=== PATIENT | female | born 1990 | race Caucasian/White ===

== ENCOUNTER 2016-07-14 08:56 | Emergency (ER) | payer SELFPAY ==
[~2016-07-14] VITALS: Ht 167.6 cm; Wt 77.9 kg
[~2016-07-14 08:56] MED LIST: ANTI-DIARRHEA2 MG PO; BACTRIM,SEPT1 TABLET PO; BENTYL10 MG PO; CIPRO500 MG PO; CLONIDINE HCL0.1 MG PO; INDOCIN25 MG PO; KEFLEX500 MG PO; MOTRIN600 MG PO; NAPROSYN500 MG PO; NOHOMEMEDS; NORCO 5/3251 TABLET PO; NORCO 7.5/321 TABLET PO; OXYCODONE HCL30 MG PO; OXYCONTIN60 MG PO; PERCOCET 5/31 TABLET PO; PHENERGAN-CODE120 ML PO; PYRIDIUM100 MG PO; PYRIDIUM200 MG PO; TRAZODONE HCL50 MG PO; VIBRAMYCIN100 MG PO; VICODIN 5-3001 EACH PO
[2016-07-14 10:15] LABS: HEMATOCRIT 43.1 % (36.0-46.0); MCH 32.5 PG (29.0-34.0); MCHC 34.3 G/DL (30.0-36.0); MCV 94.5 FL (83-99); PLATELET COUNT 237 K/uL (156-360); RBC DIS.WIDTH-CV 12.1 % (11.8-14.6); RBC DIS.WIDTH-SD 40.9 % (39-53); RED BLOOD COUNT 4.56 M/uL (3.80-5.20); WHITE BLOOD COUNT 13.4 K/uL (4.1-10.2)
[2016-07-14 10:32] LABS: CHLORIDE 101 mEq/L (99-109); SODIUM 135 mEq/L (136-147)
[2016-07-14 10:34] LABS: GLUCOSE 103 mg/dL (70-99)
[2016-07-14 10:35] LABS: ANION GAP 8 MEQ/L (2-14)
[2016-07-14 10:38] LABS: GFR ESTIMATE (CALCULATED) > 59 mL/min/
[2016-07-14 10:39] LABS: UREA NITROGEN (BUN) 9 mg/dL (9-23)
[2016-07-14 11:22] LABS: C-REACTIVE PROTEIN 156.7 MG/L (0-10)
[2016-07-14] MEDS ORDERED: KEFLEX500 MG PO (12:24)
[2016-07-14 12:28] LABS: ERTH.SED.RATE 49 MM/HR (0-20)
[2016-07-14] MEDS ORDERED: TRAMADOL HCL50 MG PO (12:28)
[2016-07-14 12:39] VITALS: BP 117/72
== END 2016-07-14 12:40 | disposition home or self-care (01) ==
LOC: EME 08:56
PROVIDERS: Emergency Medicine
DX: J02.0 Streptococcal pharyngitis (principal); Z88.1 Allergy status to other antibiotic agents
CPT/HCPCS: 70491; 80048; 85027; 85651; 86140; 87651 90; 99281; 99285; J1100; J7030